=== PATIENT | male | born 1970 | race Asian ===

== ENCOUNTER 2016-10-03 12:56 | Inpatient (IN) | payer BC ==
[2016-10-03 13:01] VITALS: BMI 28.1
[2016-10-03] MEDS ORDERED: dilTIAZem HCL 50 MG/10 ML - 10 ML VIAL ONE (13:23)
[2016-10-03] MEDS ORDERED: dilTIAZem HCL 30 MG TABLET (FP) ONE (13:29)
[2016-10-03] MEDS ORDERED: dilTIAZem HCL 30 MG TABLET (FP) PO ONE (13:31)
[2016-10-03] MEDS ORDERED: dilTIAZem HCL 50 MG/10 ML - 10 ML VIAL IVPUSH ONE ×2 (13:31→22:45)
--- NOTE | 2016-10-03 13:31 | PDOC ---
History of Present Illness - General History Source: Patient, Old Records Exam Limitations: No Limitations <Tenisha Flores - Last Filed: 10/03/16 13:34> - General History Source: Patient Exam Limitations: No Limitations - History of Present Illness Initial Comments: 10/03/16 14:28 The patient is a 46 year old female with a significant past medical history of diabetes and hypertension, who is referred to the ER by Dr. Messina for heart palpitations and chest tightness for 4 hours. Patient states he woke up this morning at 8AM in his usual state of health. He says he began to feel lightheaded at 10:30AM while he was at home on his phone checking his emails. The patient is concerned about cardiac issues because his two uncles both had an MO. Denies chest pain or shortness of breath Denies history of cardiac problems or palpitations Denies caffeine use Denies history of thyroid problems Denies shortness of breath Denies fever, chills, cough Denies nausea, vomiting, diarrhea Denies lower extremity swelling PCP: Dr. Messina <Shira May - Last Filed: 10/03/16 14:31> - General Chief Complaint: Palpitations Stated Complaint: IRREGULAR HEARTBEAT Time Seen by Provider: 10/03/16 13:22 Past History - Past Medical History Diabetes: Yes - Psycho/Social/Smoking Cessation Hx Suicidal Ideation: No Smoking History: Never smoked Information on smoking cessation initiated: No Hx Alcohol Use: No Drug/Substance Use Hx: No Substance Use Type: None <Tenisha Flores - Last Filed: 10/03/16 13:34> <Shira May - Last Filed: 10/03/16 14:31> - Past Medical History Allergies/Adverse Reactions: Allergies Allergy/AdvReac Type Severity Reaction Status Date / Time shrimp Allergy Verified 10/03/16 13:02 Home Medications: Ambulatory Orders Amlodipine Besylate [Norvasc -] 10 mg PO HS 10/03/16 Sitagliptin Phos/Metformin HCl [Janumet Xr 100-1,000 mg Tablet] 1 tab PO HS Review of Systems - Review of Systems Able to Perform ROS?: Yes Comments:: 10/03/16 14:28 GENERAL/CONSTITUTIONAL: No fever or chills. No weakness. HEAD, EYES, EARS, NOSE AND THROAT: No change in vision. No ear pain or discharge. No sore throat. CARDIOVASCULAR: (+) heart palpitations (+) chest tightness (+) lightheadedness. No chest pain or shortness of breath RESPIRATORY: No cough, wheezing, or hemoptysis. GASTROINTESTINAL: No nausea, vomiting, diarrhea or constipation. GENITOURINARY: No dysuria, frequency, or change in urination. MUSCULOSKELETAL: No joint or muscle swelling or pain. No neck or back pain. SKIN: No rash NEUROLOGIC: No headache, vertigo, loss of consciousness, or change in strength/ sensation. ENDOCRINE: No increased thirst. No abnormal weight change. HEMATOLOGIC/LYMPHATIC: No anemia, easy bleeding, or history of blood clots. ALLERGIC/IMMUNOLOGIC: No hives or skin allergy. <Shira May - Last Filed: 10/03/16 14:31> *Physical Exam - Vital Signs Last Vital Signs Temp Pulse Resp BP Pulse Ox 98.1 F 116 H 18 136/108 96 10/03/16 12:59 10/03/16 12:59 10/03/16 12:59 10/03/16 12:59 10/03/16 12:59 <Tenisha Flores - Last Filed: 10/03/16 13:34> - Vital Signs Last Vital Signs Temp Pulse Resp BP Pulse Ox 98.1 F 110 H 20 130/83 100 10/03/16 12:59 10/03/16 13:32 10/03/16 13:32 10/03/16 13:32 10/03/16 13:32 - Physical Exam Comments: 10/03/16 14:30 GENERAL: Awake, alert, and fully oriented, in no acute distress HEAD: No signs of trauma EYES: PERRLA, EOMI, sclera anicteric, conjunctiva clear ENT: Auricles normal inspection, hearing grossly normal, nares patent, oropharynx clear without exudates. Moist mucosa NECK: Normal ROM, supple, no lymphadenopathy, JVD, or masses LUNGS: Breath sounds equal, clear to auscultation bilaterally. No wheezes, and no crackles HEART: Irregularly irregular, normal S1 and S2, no murmurs, rubs or gallops ABDOMEN: Soft, nontender, normoactive bowel sounds. No guarding, no rebound. No masses EXTREMITIES: Normal range of motion, no edema. No clubbing or cyanosis. No cords, erythema, or tenderness NEUROLOGICAL: Cranial nerves II through XII grossly intact. Normal speech, normal gait SKIN: Warm, Dry, normal turgor, no rashes or lesions noted. <YadiraShira - Last Filed: 10/03/16 14:31> ED Treatment Course - LABORATORY CBC & Chemistry Diagram: 10/03/16 13:30 10/03/16 13:30 - Medications Given in the ED: ED Medications Discontinued Medications Generic Name Dose Route Start Last Admin Trade Name Pat PRN Reason Stop Dose Admin Diltiazem HCl 30 mg 10/03/16 13:31 10/03/16 13:30 Cardizem - PO 10/03/16 13:32 30 mg ONCE ONE Administration Diltiazem HCl 30 mg 10/03/16 13:31 10/03/16 13:28 Cardizem Injection - IVPUSH 10/03/16 13:32 30 mg ONCE ONE Administration <YadiraShira - Last Filed: 10/03/16 14:31> Medical Decision Making - Medical Decision Making 10/03/16 13:34 46-year-old male with history of hypertension and diabetes presents the emergency department from his primary care's office with palpitations and new onset A. fib with RVR of 160-170 and normotensive without chest pain or SOB. Plan: 1. Labs 2. EKG 3. Rate control with Cardizem 4. CXR 5. Admit to telemetry 6. Observe and reevaluate Addendum: The patient was given Cardizem 30 mg with a decrease in the heart rate into the low 100s. The patient is asymptomatic currently. <Tenisha Flores - Last Filed: 10/03/16 13:34> *DC/Admit/Observation/Transfer - Discharge Dispostion Admit: Yes - Attestations Physician Attestion: 10/03/16 13:37 I, Dr. Tenisha Flores, attest that the scribes documentation that appears above has been prepared under my direction and personally reviewed by me in its entirety. I confirmed that the note above accurately reflects all work, treatment, procedures, and medical decision-making performed by me. <Tenisha Flores - Last Filed: 10/03/16 13:34> - Attestations Scribe Attestion: 10/03/16 14:31 Documentation prepared by Shira May, acting as medical staff manager for Tenisha Flores MD. <Shira May - Last Filed: 10/03/16 14:31> Diagnosis at time of Disposition: Palpitations, New onset atrial fibrillation - Discharge Dispostion Condition at time of disposition: Stable
--- NOTE | 2016-10-03 14:07 | EKG ---
Test Reason : Blood Pressure : / mmHG Vent. Rate : 151 BPM Atrial Rate : 141 BPM P-R Int : 000 ms QRS Dur : 092 ms QT Int : 290 ms P-R-T Axes : 000 -02 -16 degrees QTc Int : 459 ms ATRIAL FIBRILLATION WITH RAPID VENTRICULAR RESPONSE ABNORMAL ECG NO PREVIOUS ECGS AVAILABLE Confirmed by BENIGNO ZUÑIGA MD ([id number]) on 10/03/2016 2:06:41 PM Referred By: Confirmed By:BENIGNO ZUÑIGA MD
[2016-10-03 14:48] LABS: ALBUMIN 4.3 g/dl (3.4-5.0); ANION GAP 11 (8-16); CALCIUM 9.5 mg/dL (8.5-10.1); CO2 27 mmol/L (21-32); COCKROFT - GAULT 85.5525; CREATININE 1.1 mg/dL (0.55-1.02); GLUCOSE,RANDOM 212 mg/dL (74-106); PHOSPHOROUS 3.3 mg/dL (2.5-4.9); SGPT/ALT 57 U/L (12-78)
[2016-10-03 14:52] LABS: ALK PHOS 76 U/L (45-117); BILIRUBIN,TOTAL 0.9 mg/dL (0.2-1.0); SGOT/AST 30 U/L (15-37); TOT PROT 8.3 g/dl (6.4-8.2); TROPONIN I < 0.02 ng/ml (0.00-0.05)
[2016-10-03] MEDS ORDERED: METOPROLOL TARTRATE 5 MG/5 ML VIAL IVPUSH ONE (16:10)
--- NOTE | 2016-10-03 16:10 | CON.CARD ---
Consult Consult Specialty:: Cardiology Referred by:: Aretha Messina MD Reason for Consultation:: Rapid afib - History of Present Illness Chief Complaint: Palpitations History of Present Illness: The patient is a 46 year old male with a significant past medical history of diabetes and hypertension,referred to the ER by Dr. Messina for heart palpitations , chest tightness and lightheadedness found to be rapid afib given Cardizem. He denies true syncope, orthopnea, PND or LE edema. Remains in rapid afib. - History Source History Provided By: Patient Limitations to Obtaining History: No Limitations - Past Medical History Cardio/Vascular: Yes: HTN Endocrine: Yes: Diabetes Mellitus - Alcohol/Substance Use Hx Alcohol Use: No - Smoking History Smoking history: Never smoked Home Medications - Allergies Allergies/Adverse Reactions: Allergies Allergy/AdvReac Type Severity Reaction Status Date / Time shrimp Allergy Verified 10/03/16 13:02 - Home Medications Home Medications: Ambulatory Orders Amlodipine Besylate [Norvasc -] 10 mg PO HS 10/03/16 Sitagliptin Phos/Metformin HCl [Janumet Xr 100-1,000 mg Tablet] 1 tab PO HS Review of Systems - Review of Systems Cardiovascular: reports: Chest Pain, Palpitations Neurological: reports: Dizziness Vital Signs: Vital Signs Temperature 98.1 F 10/03/16 12:59 Pulse Rate 110 H 10/03/16 13:32 Respiratory Rate 20 10/03/16 13:32 Blood Pressure 130/83 10/03/16 13:32 O2 Sat by Pulse Oximetry (%) 100 10/03/16 13:32 Constitutional: Yes: No Distress Neck: Yes: Supple Respiratory: Yes: Regular, CTA Bilaterally Gastrointestinal: Yes: Normal Bowel Sounds, Soft Cardiovascular: Yes: Tachycardia, Pulse Irregular JVD: No Carotid Bruit: No Heart Sounds: Yes: S1, S2 Edema: No - Other Data Rapid afib @ 151 Imaging - Results Chest X-ray: Report Reviewed (NAD) Problem List - Problems (1) New onset atrial fibrillation Code(s): I48.91 - UNSPECIFIED ATRIAL FIBRILLATION (2) Palpitations Code(s): R00.2 - PALPITATIONS (3) Hypertension Code(s): I10 - ESSENTIAL (PRIMARY) HYPERTENSION Qualifiers: Hypertension type: essential hypertension Qualified Code(s): I10 - Essential (primary) hypertension (4) Type 2 diabetes mellitus Code(s): E11.9 - TYPE 2 DIABETES MELLITUS WITHOUT COMPLICATIONS Qualifiers: Diabetes mellitus complication status: without complication Diabetes mellitus assisted insulin use: without assisted use Qualified Code(s): E11.9 - Type 2 diabetes mellitus without complications Assessment/Plan 1. Rapid afib [id number] 2. HTN 3. Type 2 DM P:1. Rate-control with Lopressor, hope to sponatenously cardiovert with rate- control 2. Check TSH, echocardiogram 3. Start Lopressor 25 bid, Eliquis 5 bid given elevated risk score 4. Thank you for consultative opportunity
[2016-10-03] MEDS ORDERED: METOPROLOL TARTRATE 5 MG/5 ML VIAL ONE (16:26)
[2016-10-03] MEDS ORDERED: METOPROLOL TARTRATE 25 MG TABLET (FP) ONE (16:26)
[2016-10-03] MEDS: METOPROLOL TARTRATE 25 MG TABLET (FP) PO SCH ×2 (16:30→21:33)
[2016-10-03 16:48] LABS: BASOPHIL 0.7 % (0-2.0); EOSINOPHIL 1.6 % (0-4.5); MCH 27.5 pg (25.7-33.7); MCHC 32.2 g/dl (32.0-36.0); MEAN CELL VOLUME 85.4 fl (80-96); MEAN PLT VOLUME 9.5 fl (7.5-11.1); NEUTROPHILS 53.6 % (42.8-82.8); WHITE BLOOD COUNT 11.5 K/mm3 (4.0-10.0)
[2016-10-03 17:49] LABS: PLATELET COUNT 290 K/MM3 (134-434); PLATELET ESTIMATE ADEQUATE (NORMAL)
[2016-10-03] MEDS: APIXABAN 5 MG TABLET PO SCH (21:33)
[2016-10-03] MEDS ORDERED: METOPROLOL TARTRATE 25 MG TABLET (FP) PO ONE (22:45)
[2016-10-04 04:36] LABS: URINE APPEARANCE CLEAR; URINE BILIRUBIN NEGATIVE (NEGATIVE); URINE BLOOD NEGATIVE (NEGATIVE); URINE COLOR LTYELLOW; URINE GLUCOSE (UA) 1+ (NEGATIVE); URINE KETONE NEGATIVE (NEGATIVE); URINE LEUK ESTERASE NEGATIVE (NEGATIVE); URINE NITRITE NEGATIVE (NEGATIVE); URINE PROTEIN NEGATIVE (NEGATIVE); URINE UROBILINOGEN NEGATIVE E.U./dl (0.2-1.0)
[2016-10-04] MEDS ORDERED: METOPROLOL TARTRATE 50 MG TABLET (FP) PO SCH (10:00)
[2016-10-04] MEDS: LOSARTAN POTASSIUM 25 MG TABLET PO SCH (10:32)
[2016-10-04] MEDS: APIXABAN 5 MG TABLET PO SCH ×2 (10:32→21:45)
--- NOTE | 2016-10-04 12:46 | HP ---
Admitting History and Physical - Primary Care Physician PCP: Aretha Messina - Admission Chief Complaint: Palpitation History of Present Illness: 46 yrs old male H/O HTn, T2DM present with c/o palpitation that he feels like his haert is pounding, symptoms start without any provocation, denies any associated SOB, Chest pain, Dizziness, BLANC or PNd no H/O wt loss or insomnia, in the ED EKG shows Afib with RVR received IV Diltiazem now rate controlled History Source: Patient Limitations to Obtaining History: No Limitations - Past Medical History Cardiovascular: Yes: HTN Endocrine: Yes: Diabetes Mellitus - Past Surgical History Past Surgical History: Yes: None - Smoking History Smoking history: Never smoked - Alcohol/Substance Use Hx Alcohol Use: No Home Medications - Allergies Allergies/Adverse Reactions: Allergies Allergy/AdvReac Type Severity Reaction Status Date / Time shrimp Allergy Verified 10/03/16 13:02 - Home Medications Home Medications: Ambulatory Orders Amlodipine Besylate [Norvasc -] 10 mg PO HS 10/03/16 Sitagliptin Phos/Metformin HCl [Janumet Xr 100-1,000 mg Tablet] 1 tab PO HS Apixaban [Eliquis -] 5 mg PO BID #60 tablet 10/05/16 Losartan Potassium [Cozaar -] 25 mg PO DAILY #60 tablet 10/05/16 Metoprolol Tartrate [Lopressor -] 50 mg PO BID #60 tablet 10/05/16 Family Disease History - Family Disease History Family Disease History: Heart Disease: Father, Mother, CA: Father, Mother Review of Systems - Review of Systems Constitutional: reports: No Symptoms. denies: Diaphoresis, Fever Eyes: reports: No Symptoms. denies: Blind Spots, Blurred Vision HENT: reports: No Symptoms. denies: Difficult Swallowing, Ear Discharge Neck: reports: No Symptoms Cardiovascular: reports: Palpitations. denies: Chest Pain, Edema, Shortness of Breath Respiratory: reports: No Symptoms. denies: Cough, Exercise Intolerance Gastrointestinal: reports: No Symptoms. denies: Abdominal Pain, Bloating Genitourinary: reports: No Symptoms. denies: Burning, Discharge Musculoskeletal: reports: No Symptoms, Decreased ROM. denies: Back Pain Integumentary: reports: No Symptoms Neurological: reports: No Symptoms Endocrine: denies: Excessive Sweating, Flushing, Increased Hunger Psychiatric: reports: No Symptoms. denies: Hallucinations, Panic Pain Intensity: 0 Physical Examination Vital Signs: Vital Signs Temperature 98.6 F 10/04/16 06:00 Pulse Rate 90 10/04/16 06:00 Respiratory Rate 20 10/04/16 06:00 Blood Pressure 118/90 10/04/16 06:00 O2 Sat by Pulse Oximetry (%) 96 10/03/16 22:38 Constitutional: Yes: Well Nourished, No Distress Eyes: Yes: WNL, Conjunctiva Clear, EOM Intact HENT: Yes: WNL, Atraumatic, Normocephalic Neck: Yes: WNL, Supple, Trachea Midline. No: Decreased ROM, Lymphadenopathy Cardiovascular: Yes: Pulse Irregular, S1, S2. No: JVD, Gallop, Murmur, Rub, Varicosities Respiratory: Yes: WNL, Regular, CTA Bilaterally Gastrointestinal: Yes: WNL, Normal Bowel Sounds, Soft ...Rectal Exam: Yes: Deferred Renal/: Yes: Anuria Extremities: Yes: WNL. No: Calf Tenderness Edema: No Peripheral Pulses WNL: Yes Peripheral Pulses: Left Doralis Pedis: 2+, Right Dorsalis Pedis: 2+ Neurological: Yes: WNL, Alert, Oriented ...Motor Strength: WNL, LUE, LLE, RUE, RLE Labs: Laboratory Results - last 24 hr 10/03/16 10/03/16 10/04/16 13:30 13:30 01:30 WBC 11.5 H RBC 6.17 H Hgb 17.0 H Hct 52.7 H MCV 85.4 MCHC 32.2 RDW 13.0 Plt Count 290 MPV 9.5 Neutrophils % 53.6 Lymphocytes % 38.8 Monocytes % 5.3 Eosinophils % 1.6 Basophils % 0.7 Platelet Estimate Adequate Platelet Comment No clumping noted Sodium 137 Potassium 4.5 Chloride 99 Carbon Dioxide 27 Anion Gap 11 BUN 13 Creatinine 1.1 H Creat Clearance w eGFR 53.71 Random Glucose 212 H Calcium 9.5 Phosphorus 3.3 Magnesium 2.0 Total Bilirubin 0.9 AST 30 ALT 57 Alkaline Phosphatase 76 Creatine Kinase 121 Troponin I < 0.02 Total Protein 8.3 H Albumin 4.3 TSH Urine Color Ltyellow Urine Appearance Clear Urine pH 5.0 Ur Specific [place] 1.015 Urine Protein Negative Urine Glucose (UA) 1+ H Urine Ketones Negative Urine Blood Negative Urine Nitrite Negative Urine Bilirubin Negative Urine Urobilinogen Negative Ur Leukocyte Esterase Negative 10/04/16 05:35 WBC RBC Hgb Hct MCV MCHC RDW Plt Count MPV Neutrophils % Lymphocytes % Monocytes % Eosinophils % Basophils % Platelet Estimate Platelet Comment Sodium Potassium Chloride Carbon Dioxide Anion Gap BUN Creatinine Creat Clearance w eGFR Random Glucose Calcium Phosphorus Magnesium Total Bilirubin AST ALT Alkaline Phosphatase Creatine Kinase Troponin I Total Protein Albumin TSH 1.01 Urine Color Urine Appearance Urine pH Ur Specific [place] Urine Protein Urine Glucose (UA) Urine Ketones Urine Blood Urine Nitrite Urine Bilirubin Urine Urobilinogen Ur Leukocyte Esterase Imaging - Results Chest X-ray: Report Reviewed (No acut Chnages) EKG: Report Reviewed (Afib with RVR at [address] chnages) Problem List - Problems (1) Hypertension Assessment/Plan: Well controlled on Metoprolol and Amlodipine will optimize with HR Code(s): I10 - ESSENTIAL (PRIMARY) HYPERTENSION Qualifiers: Hypertension type: essential hypertension Qualified Code(s): I10 - Essential (primary) hypertension (2) New onset atrial fibrillation Assessment/Plan: Now rate controlled on B Blockers, patient is on Eliquis and Metoprolol Code(s): I48.91 - UNSPECIFIED ATRIAL FIBRILLATION (3) Type 2 diabetes mellitus Assessment/Plan: Currently on Metformin and Sitagliptazine F/U accu check HbA1C, Lipid panel and TSH Code(s): E11.9 - TYPE 2 DIABETES MELLITUS WITHOUT COMPLICATIONS Qualifiers: Diabetes mellitus complication status: without complication Diabetes mellitus nursing home insulin use: without nursing home use Qualified Code(s): E11.9 - Type 2 diabetes mellitus without complications Assessment/Plan Active Medications Generic Name Dose Route Start Last Admin Trade Name Freq PRN Reason Stop Dose Admin Apixaban 5 mg 10/03/16 22:00 10/04/16 10:32 Eliquis - PO 5 mg BID GREGORIO Administration Losartan Potassium 25 mg 10/04/16 10:00 10/04/16 10:32 Cozaar - PO 25 mg DAILY GREGORIO Administration Metoprolol Tartrate 50 mg 10/04/16 10:00 10/04/16 10:32 Lopressor - PO 50 mg BID GREGORIO Administration
--- NOTE | 2016-10-04 13:53 | PN ---
Progress Note, Physician Chief Complaint: Events noted Denies chest pain, SOB or palpitation History of Present Illness: Patient was seen and examined. Awake and alert. Chart was reviewed Atrial fibrillation with rapid ventricular response - Current Medication List Current Medications: Active Medications Apixaban (Eliquis -) [address] [facility] Last Admin: 10/04/16 10:32 Dose: 5 mg Insulin Aspart (Novolog Vial Sliding Scale -) [address] [facility] PRN Reason: Protocol Losartan Potassium (Cozaar -) [address] [facility] Last Admin: 10/04/16 10:32 Dose: 25 mg Metoprolol Tartrate (Lopressor -) [address] [facility] Last Admin: 10/04/16 10:32 Dose: 50 mg - Objective Vital Signs: Vital Signs Temperature 98.6 F 10/04/16 06:00 Pulse Rate 90 10/04/16 06:00 Respiratory Rate 20 10/04/16 06:00 Blood Pressure 118/90 10/04/16 06:00 O2 Sat by Pulse Oximetry (%) 96 10/03/16 22:38 Neck: Yes: Supple Cardiovascular: Yes: Pulse Irregular, S1, S2 Respiratory: Yes: CTA Bilaterally Gastrointestinal: Yes: Normal Bowel Sounds, Soft. No: Tenderness Edema: No Problem List - Problems (1) Hypertension Code(s): I10 - ESSENTIAL (PRIMARY) HYPERTENSION Qualifiers: Hypertension type: essential hypertension Qualified Code(s): I10 - Essential (primary) hypertension (2) New onset atrial fibrillation Code(s): I48.91 - UNSPECIFIED ATRIAL FIBRILLATION (3) Type 2 diabetes mellitus Code(s): E11.9 - TYPE 2 DIABETES MELLITUS WITHOUT COMPLICATIONS Qualifiers: Diabetes mellitus complication status: without complication Diabetes mellitus terminal worker insulin use: without terminal worker use Qualified Code(s): E11.9 - Type 2 diabetes mellitus without complications Assessment/Plan 1. Atrial fibrillation with rapid ventricular response [id number] 2. HTN 3. Type 2 DM PLAN: 1. Rate-control with Lopressor and uptitrate 2. TSH is WNL. Transthoracic echocardiography to assess LV and valvular function 3. Eliquis 5 mg bid given elevated risk score. Continue Losartan as tolerated 4. Further plans to follow if he does not spontaneously convert. Options would include synchronized cardioversion with CHARITO vs. ablation if clinically difficult to manage AF. Kelton Aden MD
[2016-10-04] MEDS: METOPROLOL TARTRATE 50 MG TABLET (FP) PO SCH ×2 (15:02→21:45)
[2016-10-04] MEDS: INSULIN SLIDING SCALE (NOVOLOG) 1 VIAL SQ SCH (16:39)
[2016-10-05] MEDS: METOPROLOL TARTRATE 50 MG TABLET (FP) PO SCH (05:44)
[2016-10-05] MEDS: INSULIN SLIDING SCALE (NOVOLOG) 1 VIAL SQ SCH ×2 (06:30→12:21)
--- NOTE | 2016-10-05 09:10 | PN ---
Progress Note, Physician Chief Complaint: Feels improved no palpitation History of Present Illness: 46 yrs old obese male with H/O HTN, T2DM present with palpitation EKG shows Afib with RVR, now on Ac rate controlled. - Current Medication List Current Medications: Active Medications Apixaban (Eliquis -) 5 mg PO BID [facility] Last Admin: 10/04/16 21:45 Dose: 5 mg Insulin Aspart (Novolog Vial Sliding Scale -) 1 vial SQ TIDAC [facility] PRN Reason: Protocol Last Admin: 10/05/16 06:30 Dose: 2 units Losartan Potassium (Cozaar -) 25 mg PO DAILY [facility] Last Admin: 10/04/16 10:32 Dose: 25 mg Metoprolol Tartrate (Lopressor -) 50 mg PO TID [facility] Last Admin: 10/05/16 05:44 Dose: 50 mg - Objective Vital Signs: Vital Signs Temperature 97.6 F 10/05/16 06:00 Pulse Rate 82 10/05/16 06:00 Respiratory Rate 18 10/05/16 06:00 Blood Pressure 146/93 10/05/16 06:00 O2 Sat by Pulse Oximetry (%) 98 10/05/16 06:00 Constitutional: Yes: Well Nourished Eyes: Yes: WNL, Conjunctiva Clear, EOM Intact HENT: Yes: WNL, Atraumatic, Normocephalic Neck: Yes: WNL, Supple, Trachea Midline Cardiovascular: Yes: WNL, Pulse Irregular, S1, S2. No: JVD, Murmur, Rub Respiratory: Yes: WNL, Regular, CTA Bilaterally Gastrointestinal: Yes: WNL, Normal Bowel Sounds, Soft ...Rectal Exam: Yes: Deferred Genitourinary: Yes: WNL. No: Anuria, Bladder Distention Extremities: Yes: WNL. No: Calf Tenderness Edema: No Peripheral Pulses WNL: Yes Peripheral Pulses: Left Doralis Pedis: 2+, Right Dorsalis Pedis: 2+ Neurological: Yes: WNL, Alert, Oriented. No: Aphasia ...Motor Strength: WNL, LUE, LLE, RUE, RLE Problem List - Problems (1) Hypertension Assessment/Plan: Well controlled on Metoprolol and Losartan will optimize with HR Code(s): I10 - ESSENTIAL (PRIMARY) HYPERTENSION Qualifiers: Hypertension type: essential hypertension Qualified Code(s): I10 - Essential (primary) hypertension (2) New onset atrial fibrillation Assessment/Plan: Now rate controlled on B Blockers, patient is on Eliquis and Metoprolol Code(s): I48.91 - UNSPECIFIED ATRIAL FIBRILLATION (3) Type 2 diabetes mellitus Assessment/Plan: Currently correction dose insulin F/U accu check HbA1C, Lipid panel and TSH Code(s): E11.9 - TYPE 2 DIABETES MELLITUS WITHOUT COMPLICATIONS Qualifiers: Diabetes mellitus complication status: without complication Diabetes mellitus long-term insulin use: without long-term use Qualified Code(s): E11.9 - Type 2 diabetes mellitus without complications
[2016-10-05] MEDS: APIXABAN 5 MG TABLET PO SCH (09:44)
[2016-10-05] MEDS: LOSARTAN POTASSIUM 25 MG TABLET PO SCH (09:44)
--- NOTE | 2016-10-05 10:29 | PN ---
Progress Note, Physician History of Present Illness: Spontaneously converted to sinus rhythm with rate-control, palpitations have resolved. - Current Medication List Current Medications: Active Medications Apixaban (Eliquis -) 5 mg PO BID [facility] Last Admin: 10/05/16 09:44 Dose: 5 mg Insulin Aspart (Novolog Vial Sliding Scale -) 1 vial SQ TIDAC [facility] PRN Reason: Protocol Last Admin: 10/05/16 06:30 Dose: 2 units Losartan Potassium (Cozaar -) 25 mg PO DAILY [facility] Last Admin: 10/05/16 09:44 Dose: 25 mg Metoprolol Tartrate (Lopressor -) 50 mg PO TID [facility] Last Admin: 10/05/16 05:44 Dose: 50 mg - Objective Vital Signs: Vital Signs Temperature 97.6 F 10/05/16 06:00 Pulse Rate 82 10/05/16 06:00 Respiratory Rate 18 10/05/16 06:00 Blood Pressure 146/93 10/05/16 06:00 O2 Sat by Pulse Oximetry (%) 98 10/05/16 06:00 Constitutional: Yes: No Distress, Calm Neck: Yes: Supple Cardiovascular: Yes: Regular Rate and Rhythm Respiratory: Yes: Regular, CTA Bilaterally Gastrointestinal: Yes: Normal Bowel Sounds, Soft Edema: No - ....Imaging EKG: Report Reviewed (Tele: SR in 80s) Problem List - Problems (1) New onset atrial fibrillation Code(s): I48.91 - UNSPECIFIED ATRIAL FIBRILLATION (2) Palpitations Code(s): R00.2 - PALPITATIONS (3) Hypertension Code(s): I10 - ESSENTIAL (PRIMARY) HYPERTENSION Qualifiers: Hypertension type: essential hypertension Qualified Code(s): I10 - Essential (primary) hypertension (4) Type 2 diabetes mellitus Code(s): E11.9 - TYPE 2 DIABETES MELLITUS WITHOUT COMPLICATIONS Qualifiers: Diabetes mellitus complication status: without complication Diabetes mellitus fdc insulin use: without fdc use Qualified Code(s): E11.9 - Type 2 diabetes mellitus without complications Assessment/Plan 10/14/1016 Transthoracic echocardiography: Normal LV size and fxn, mild MR, TR, MA 1. Paroxysmal Atrial fibrillation with rapid ventricular response now in sinus rhythm [id number] 2. HTN 3. Type 2 DM PLAN: 1. Decrease Lopressor 50 bid 2. Continue Eliquis 5 mg bid given elevated risk score and Losartan 25 qd as tolerated 3. September d/c with f/u in office Monday10/11/2016 3:45 PM
--- NOTE | 2016-10-05 12:20 | DS ---
Physical Examination Vital Signs: Vital Signs Temperature 97.6 F 10/05/16 06:00 Pulse Rate 82 10/05/16 06:00 Respiratory Rate 18 10/05/16 06:00 Blood Pressure 146/93 10/05/16 06:00 O2 Sat by Pulse Oximetry (%) 98 10/05/16 06:00 Findings/Remarks: 46 yrs old man with H/O HTN, T2DM, Obesity admitted with Afib with RVR , patient was piut on Diltizem drip, gradually switch to PO B Blockers for rate control and Apaxiban for AC , patient is rate controlled on AC will be Dc Home, Patient will F/U with cardiology and PCP clinic in a wk Pt denies any chest pain SONB Or Palpitation. Constitutional: Yes: Well Nourished, No Distress, Calm Eyes: Yes: WNL, Conjunctiva Clear, EOM Intact, Occular Prosthesis HENT: Yes: WNL, Atraumatic, Normocephalic Neck: Yes: WNL, Supple, Trachea Midline Cardiovascular: Yes: WNL, Pulse Irregular Respiratory: Yes: WNL, Regular, CTA Bilaterally Gastrointestinal: Yes: WNL, Normal Bowel Sounds ...Rectal Exam: Yes: Deferred Musculoskeletal: Yes: WNL Extremities: Yes: WNL Edema: No Integumentary: Yes: WNL Neurological: Yes: WNL, Alert, Oriented ...Motor Strength: WNL Psychiatric: Yes: WNL Labs: Laboratory Results - last 24 hr 10/04/16 10/05/16 10/05/16 15:35 05:40 10:04 POC Glucometer 253 175 Magnesium 2.2 CBC, BMP 10/03/16 13:30 10/03/16 13:30 Discharge Summary Reason For Visit: PALPITATIONS,NEW ONSET ATRIAL FIB Current Active Problems Hypertension (Acute) New onset atrial fibrillation (Acute) Palpitations (Acute) Type 2 diabetes mellitus (Acute) Condition: Stable - Instructions Diet, Activity, Other Instructions: Low Salt Low Cholesterol Diabetics Diet. Referrals: Brian Laguna MD [Staff Physician] - Aretha Messina MD [Primary Care Provider] - Roc Peña MD [Staff Physician] - Disposition: HOME - Home Medications Comprehensive Discharge Medication List: Ambulatory Orders Amlodipine Besylate [Norvasc -] 10 mg PO HS 10/03/16 Sitagliptin Phos/Metformin HCl [Janumet Xr 100-1,000 mg Tablet] 1 tab PO HS Apixaban [Eliquis -] 5 mg PO BID #60 tablet 10/05/16 Losartan Potassium [Cozaar -] 25 mg PO DAILY #60 tablet 10/05/16 Metoprolol Tartrate [Lopressor -] 50 mg PO BID #60 tablet 10/05/16 Time Spent > 30 minutes
[2016-10-05 15:06] VITALS: BP 138/87; PULSE 78; TEMP 98.1
[2016-10-05] MEDS ORDERED: METOPROLOL TARTRATE 50 MG TABLET (FP) PO SCH (22:00)
[2016-10-05] MEDS ORDERED: PATIENT'S OWN MEDICATION (NON-FORMULARY) (Sitagliptin Phos/Metformin Hcl [Janumet Xr 100-1 PO SCH (22:00)
== END 2016-10-05 13:29 | disposition home or self-care (01) | DRG 310 ==
LOC: JER 12:56 → EDSEX 13:38 → JERBED 13:38 → J4W 20:25
PROVIDERS: ADMIT Internal Medicine; ATTEND Internal Medicine
DX: I48.0 Paroxysmal atrial fibrillation (principal); E11.9 Type 2 diabetes mellitus without complications; I10 Essential (primary) hypertension; Z79.84 Long term (current) use of oral hypoglycemic drugs
CPT/HCPCS: 36415; 71010-TC; 80053; 81003; 82550; 83735; 84100; 84443; 84484; 85025; 93005; 93010; 93306-TC; 99285-25